=== PATIENT | female | born 1970 | race Caucasian/White ===

== ENCOUNTER 2019-07-22 22:30 | Emergency (ER) | payer BC, SELFPAY ==
--- NOTE | ~2019-07-22 | CT_ITS ---
EXAMINATION: CTA chest PE protocol DATE: 07/22/2019 23:21 INDICATION: Dyspnea, pleuritic chest pain TECHNIQUE: Computed tomography angiography (CTA) of the chest was performed with 100 mL Omnipaque-350 intravenous contrast timed to evaluate the pulmonary arteries. Coronal maximum intensity projection 3D-reconstructions were created by the technologist. Automated exposure control and iterative reconst ruction technique were employed. Exam dose: 790.10 mGy-cm total exam DLP. COMPARISON: None. FINDINGS: Examination is diagnostic for bilateral pulmonary emboli, including saddle embolus on the l eft, with emboli in the left main pulmonary artery extending into the lobar and segmental branches an d lobar, segmental and subsegmental pulmonary emboli on the right. No thoracic aortic aneurysm or dissection. Normal heart size. No pericardial or pleural effusion. No hilar or mediastinal mass lesion or lymphad enopathy. There is focal lateral consolidation in the lower lingula which may be due to infarct. Status post cholecystectomy. IMPRESSION: Extensive bilateral pulmonary embolism, possible lingular subsegmental infarct Reviewed, dictated and finalized at [facility]. Reviewed, dictated and finalized at location [facility]. IMPRESSION: Extensive bilateral pulmonary embolism, possible lingular subsegme ntal infarct
[2019-07-22 22:33] VITALS: BP 181/115; PULSE 140; RESP 30; TEMP 37.1; O2SAT 99
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
--- NOTE | 2019-07-22 22:37 | ECG_ITS ---
Measurements Intervals [place] Rate: 133 P: 40 DC: 131 QRS: -3 QRSD: 86 T: 43 QT: 301 QTc: 449 Interpretive Statements SINUS TACHYCARDIA DELAYED PRECORDIAL R/S TRANSITION BASELINE ARTIFACT- I, II, III, AVR, AVL, AVF, V1 ABNORMAL ECG Electronically Signed On 07-23-2019 8:08:02 CDT by Nick Escobar D.O.
[2019-07-22 22:45] LABS: Basophils Percent Auto 0.1 % (0.2-1.2); Eosinophils Absolute Auto 0.1 K/mm3 (0-0.3); Hematocrit 39.3 % (37.0-47.0); Hemoglobin 13.2 g/dL (12.0-15.0); Immature Granulocyte Absolute 0.03 K/mm3 (0.00-0.031); Immature Granulocyte Percent A 0.2 % (0-0.5); Lymphocytes Absolute Auto 5.64 K/mm3 (0.9-3.2); Lymphocytes Percent Auto 41.9 % (18.3-44.2); Mean Corpuscular HGB Conc 33.6 g/dl (32-36); Mean Corpuscular Hemoglobin 30.3 pg (26-34); Mean Corpuscular Volume 90.1 fl (80-100); Mean Platelet Volume 9.8 fl (7.4-10.4); Monocytes Absolute Auto 1.2 K/mm3 (0.1-0.6); Neutrophils Absolute Auto 6.4 K/mm3 (1.3-6.7); Neutrophils Percent Auto 47.8 % (45.5-73.1); Platelet Count Result 244 k/mm3 (150-375); Red Blood Count 4.36 M/mm3 (4.2-5.4); Red Cell Distribution Width 11.9 % (11.5-14.5); White Blood Count 13.5 K/mm3 (4.5-10.0)
[2019-07-22] MEDS: ASPIRIN 81 MG CHEWABLE TABLET 324 MG PO (22:50)
[2019-07-22] MEDS: SODIUM CHLORIDE 0.9% IV 1,000 ML 999 ML IV CONT (22:50)
[2019-07-22 22:55] LABS: Prothrombin Time 12.8 Seconds (11.1-14.7)
[2019-07-22 22:56] LABS: Blood Urea Nitrogen 11 mg/dL (7-17); Carbon Dioxide 24 mmol/L (22-30); Chloride 104 mmol/L (98-107); Estimated CRCL calculation 116 ml/min; Estimated Glomerular Filt Rate > 60; Glucose 107 mg/dL (65-105); Partial Thromboplastin Time 26.9 SECONDS (22.3-36.8); Potassium 4.1 mmol/L (3.4-5.0); Sodium 136 mmol/L (137-145)
[2019-07-22] MEDS: MORPHINE SULFATE 4 MG/ML INJ IV PUSH (22:56)
[2019-07-22] MEDS: ONDANSETRON INJ 4 MG/2 ML VIAL IV PUSH (22:57)
[2019-07-22 23:00] VITALS: BP 139/95; PULSE 128; RESP 22; O2SAT 97
--- NOTE | 2019-07-22 23:05 | PC.NURSE ---
called lab to add on orders at this time
[2019-07-22 23:08] LABS: Troponin I < 0.012 ng/mL (0.000-0.034)
[2019-07-22 23:31] LABS: D Dimer 6.02 ug/mL (<0.48)
[2019-07-22 23:32] LABS: Add Urine Microscopic? YES; Appearance Urine Cloudy (Clear); Bacteria Urine Trace /hpf; Bilirubin Urine Negative (Negative); Blood Urine 2+ (Negative); Color Urine Yellow (Yellow); Glucose Urine UA Negative (Negative); Ketones Urine Trace mg/dL (Negative); Leukocyte Esterase Ur 2+ LEU/UL (Negative); Mucus Urine Rare /lpf; Nitrate Urine Negative (Negative); Protein Urine 1+ mg/dL (Negative); Specific Grav Ur 1.041 (1.001-1.035); Squamous Epithelial Cell Urine Many /hpf (Few)
[2019-07-22 23:41] LABS: Alanine Aminotransferase 32 U/L (4-35); Albumin Level 3.9 g/dL (3.5-5.1); Alkaline Phosphatase 82 U/L (38-126); Aspartate Amino Transferase 38 U/L (14-36); Bilirubin,Total 0.2 mg/dL (0.2-1.3); Blood Urea Nitrogen 11 mg/dL (7-17); Calcium 8.9 mg/dL (8.4-10.2); Carbon Dioxide 23 mmol/L (22-30); Chloride 104 mmol/L (98-107); Estimated CRCL calculation 116 ml/min; Estimated Glomerular Filt Rate > 60; Glucose 106 mg/dL (65-105); NT Pro B Type Natriuretic Pept 231 PG/ML (5-100); Sodium 137 mmol/L (137-145)
[2019-07-22 23:44] LABS: Alveolar/Arterial O2 Gradient 39.8 mmHg; Carboxyhemoglobin 0.2 % THb (0-2.0); Fractional Inspired Oxygen 21 %; HCO3 ABG 19.1 mEq/l (22.0-26.0); Methemoglobin ABG 0.2 %THb (0-1.5); Oxygen Content ABG 16.7 %vol (16.0-22.0); Oxygen Saturation ABG 95.6 % (95.0-100.0); Oxyhemoglobin 93.9 % THb (90.0-100.0); PCO2 ABG 29.5 mmHg (35.0-45.0); PO2 ABG 74.6 mmHg (80.0-100.0); PO2 FiO2 Ratio Arterial Blood 3.55 %; Reduced Hemoglobin 5.7 %THb (0-5.0); Total Hemoglobin 12.6 g/dL (12.0-18.0)
[2019-07-22 23:45] LABS: Device ROOM AIR; Modified Allen's Test Pass; Site Drawn RIGHT RADIAL
[2019-07-22 23:57] VITALS: BP 125/69; PULSE 112; RESP 17; O2SAT 97
[2019-07-23 00:01] LABS: Thyroid Stimulating Hormone < 0.015 uIU/mL (0.465-4.680)
[2019-07-23] MEDS: HEPARIN SOD/D5W 100 UNITS/ML 25,000 UNITS/250 ML BAG 13 UNITS IV CONT (00:29)
[2019-07-23] MEDS: HEPARIN SODIUM 5,000 UNITS/ML VIAL 6000 UNITS IV PUSH (00:30)
[2019-07-23 00:33] VITALS: BP 162/92; PULSE 122; RESP 18; O2SAT 99
--- NOTE | 2019-07-23 00:55 | PC.NURSE ---
Juan mccrary [place] called for triage questions.
--- NOTE | 2019-07-23 01:10 | PC.NURSE ---
Juan from [place] [facility] called back to give bed number and phone number for report. Bed [id number] Number [phone] Report given to Rebecca.
[2019-07-23 02:23] VITALS: BP 111/91; PULSE 123; RESP 18; O2SAT 97
[2019-07-23 02:59] LABS: Troponin I < 0.012 ng/mL (0.000-0.034)
== END 2019-07-23 02:26 | disposition short-term general hospital (02) ==
PROVIDERS: Emergency Provider Emergency Medicine; PCP Family Medicine Adolescent Medicine
DX: I26.99 Other pulmonary embolism without acute cor pulmonale (principal); R00.0 Tachycardia, unspecified; R94.31 Abnormal electrocardiogram [ECG] [EKG]
CPT/HCPCS: 36415; 36600; 71275; 80048; 80053; 81001; 81025; 82375; 82805; 83050; 83880; 84443; 84484; 85025; 85380; 85610; 85730; 87086; 87088; 93005; 96361; 96365; 96366; 96367; 96375; 99291; A9270; J0131; J1644; J2270; J2405; J7030; Q9967

== ENCOUNTER 2019-09-03 09:48 | Emergency (ER) | payer BC, SELFPAY ==
[2019-09-03 10:04] VITALS: BP 138/90; PULSE 112; RESP 18; TEMP 37.3; O2SAT 98
--- NOTE | 2019-09-03 10:11 | ED.UPPEXIN ---
HPI - Extremity Injury (Upper) General Chief Complaint: Extremity Injury, Upper Stated Complaint: left arm pain Time Seen by Provider: 09/03/19 10:11 Source: patient and RN notes reviewed History of Present Illness HPI narrative: Patient is a 49-year-old who presents the urgent care with complaints of bilateral shoulder spasms. Patient states that she has had a lot of recent medical history starting on July 22 with chest pain and being diagnosed with a PE and a DVT. Patient was admitted to [facility] at that time. Patient was also diagnosed with hypothyroidism and was placed on medication in which she believes she was allergic to. Therefore last week patient was on a 5-day steroid taper and finished last dose as of yesterday. Patient states that she believes her muscle spasms are related to pressure washing last week. States that it started on and has been progressively worse since stopping the steroid yesterday. Patient has been taking Tylenol as needed for pain and states that it does normally help her. Patient presented very anxious and tearful and seemed to calm down after speaking with her. Patient denies of any recent fall, trauma, injury. States that the right arm is much better than the left. Patient states that she is tired and increased work around the house and was recently getting ready for a dinner constitution party this evening. Patient states several times that she does not wish to go back to the ER but will if she has to . No other acute complaints. No acute distress noted. Patient read the plan of care. Related Data Home Medications Medication Instructions Recorded Confirmed L norgest/e.estradiol-e.estrad 03/20/19 [Ashlyna] apixaban [Eliquis] mg 09/03/19 montelukast mg 09/03/19 Allergies Allergy/AdvReac Type Severity Reaction Status Date / Time amoxicillin Allergy Unknown Hives Verified 07/22/19 23:12 ibuprofen Allergy Unknown Hives Verified 07/22/19 22:39 penicillin G Allergy Unknown Hives Verified 07/22/19 22:39 Sulfa (Sulfonamide Allergy Unknown Hives Verified 07/22/19 23:12 Antibiotics) sulfanilamide Allergy Unknown Hives Verified 07/22/19 22:39 Review of Systems Review of Systems: Narrative: CONSTITUTIONAL: Denies fever, chills, or sweats. EYES: Denies visual changes, redness, or discharge. ENT: Denies rhinorrhea, congestion, sore throat, or otalgia. CARDIOVASCULAR: Denies chest pain, palpitations, or edema. RESPIRATORY: Denies cough or dyspnea. GASTROINTESTINAL: Denies abdominal pain, nausea, vomiting, or diarrhea. GENITOURINARY: Denies dysuria or hematuria. SKIN: Denies rash or itching. MUSCULOSKELETAL:reports of upper back and bilateral shoulder pains/muscle spasms NEUROLOGIC: Denies headache, numbness, or weakness. All other systems reviewed are negative, except as documented in HPI. [facility] Past Medical History Medical History (Updated 09/03/19 @ 10:32 by FADUMO Daugherty) Anxiety Tonsillitis Surgical History Surgical History (Updated 07/23/19 @ 00:12 by Patricia Barrios MD) H/O dilation and curettage H/O foot surgery History of sleeve gastrectomy Hx of tonsillectomy Social History Social History Smoking status: Never smoker Alcohol intake: never Comments At the time of my signature, I reviewed and agree with the nursing past medical, surgical, social, and family history. There is no relevant family history pertinent to the patient complaint. Exam Narrative: Exam Narrative: GENERAL: This is a well-nourished, well-developed patient, very anxious HEAD: normocephalic, atraumatic. EYES: PERRL. Sclera clear/white. Vision is grossly intact. EARS: External ears normal NOSE: External nose normal with no obvious nasal discharge, nares without redness, no rhinorrhea. THROAT: Mucous membranes moist NECK: Neck supple CARDIOVASCULAR: Regular rate and rhythm without murmurs, gallops, or rubs. RESPIRATORY: Clear to a
== END 2019-09-03 10:40 | disposition home or self-care (01) ==
PROVIDERS: Emergency Provider Nurse Practitioner Family; PCP Family Medicine Adolescent Medicine
DX: M62.838 Other muscle spasm (principal); Z86.711 Personal history of pulmonary embolism
CPT/HCPCS: 99213; G0463

== ENCOUNTER 2019-09-03 18:40 | Emergency (ER) | payer BC, SELFPAY ==
--- NOTE | ~2019-09-03 | XR_ITS ---
EXAMINATION: XR chest 1V portable DATE: 09/03/2019 19:34 INDICATION: Muscular spasm. Right arm, hand and neck swelling. TECHNIQUE: frontal view of the chest was obtained. COMPARISON: Chest radiograph dated 02/09/[address] dated 07/22/2019 FINDINGS: The lungs are clear with no focal airspace opacities, pulmonary edema, pleural effusion or pneumothor ax. The cardiomediastinal silhouette is normal. Mild to moderate thoracic spondylosis. IMPRESSION: 1. No acute cardiopulmonary disease. Reviewed, dictated and finalized at location [facility].
[2019-09-03 18:46] VITALS: BP 139/101; PULSE 126; RESP 27; TEMP 37.3; O2SAT 98
--- NOTE | 2019-09-03 19:18 | ED.GENADULT ---
HPI - General Adult General Chief complaint: Extremity Problem,Nontraumatic Stated complaint: swelling to hands, muscle spasms Time Seen by Provider: 09/03/19 18:56 Source: patient History of Present Illness HPI narrative: Patient is 49 years old white female, obese. Presents with intermittent spasm of the left biceps started 2 days ago. Today started having pain in the back of her neck, arms and groin area bilaterally. Patient also complaining of hand swelling bilaterally with pain. Patient finished a course of prednisone yesterday 60 mg once a day for the last 6 days. Patient started prednisone because of generalized hives which could be secondary to a new anti-thyroid medication started 1 week earlier. The antithyroid medication was stopped 1 week ago. Because of hives, tremors, and restlessness. Patient reports having quite a bit of work at home including power wash use at home prior to the muscle spasm. Patient went to urgent care this morning and started on Flexeril with improvement but now complaining of neck pain, groin pain and hand pain. Patient denies any fever, chills, nausea, vomiting, chest pain, shortness of breath, abdominal pain. Related Data Home Medications Medication Instructions Recorded Confirmed apixaban [Eliquis] mg 09/03/19 montelukast mg 09/03/19 Allergies Allergy/AdvReac Type Severity Reaction Status Date / Time amoxicillin Allergy Unknown Hives Verified 09/03/19 18:54 ibuprofen Allergy Unknown Hives Verified 09/03/19 18:54 penicillin G Allergy Unknown Hives Verified 09/03/19 18:54 Sulfa (Sulfonamide Allergy Unknown Hives Verified 09/03/19 18:54 Antibiotics) sulfanilamide Allergy Unknown Hives Verified 09/03/19 18:54 Review of Systems Review of Systems: Narrative: CONSTITUTIONAL: Denies fever, chills, or sweats. EYES: Denies visual changes, redness, or discharge. ENT: Denies rhinorrhea, congestion, sore throat, or otalgia. CARDIOVASCULAR: Denies chest pain, palpitations, or edema. RESPIRATORY: Denies cough or dyspnea. GASTROINTESTINAL: Denies abdominal pain, nausea, vomiting, or diarrhea. GENITOURINARY: Denies dysuria or hematuria. SKIN: Denies rash or itching. MUSCULOSKELETAL: Denies back pain, joint pain, or myalgia. NEUROLOGIC: Denies headache, numbness, or weakness. PSYCHIATRIC: Denies anxiety or depression. PMFSH Past Medical History Medical History Anxiety Tonsillitis Surgical History Surgical History H/O dilation and curettage H/O foot surgery History of sleeve gastrectomy Hx of tonsillectomy Social History Social History Smoking status: Never smoker Alcohol intake: never Gender identity (if verbalized by the patient): Female Sexual Orientation (if Verbalized by the Patient): Straight or Heterosexual Exam Narrative: Exam Narrative: General appearance: Well-developed, well-nourished Skin: Normal color Head: Normocephalic, nontraumatic Eyes: Clear conjunctiva ENT: Oropharynx normal, ears normal, nose normal Neck: Supple, nontender Chest and respiratory: Airway patent, no respiratory distress, no accessory muscle use Heart: Regular rate/rhythm Abdomen: Soft, nontender, no organomegaly, quiet bowel sounds Vascular: Normal peripheral pulses, normal capillary refill. Musculoskeletal: Diffuse tenderness of the hands bilaterally mainly on the right side, slight limited range of motion of the wrist bilaterally mainly on the right side Neurologic: Alert and oriented ?3, CANE BURNER is normal as tested, no gross motor deficit Course Course E
[2019-09-03 19:33] LABS: Basophils Percent Auto 0.2 % (0.2-1.2); Eosinophils Absolute Auto 0.1 K/mm3 (0-0.3); Eosinophils Percent Auto 0.7 % (0-4.4); Hematocrit 40.6 % (37.0-47.0); Hemoglobin 13.3 g/dL (12.0-15.0); Immature Granulocyte Absolute 0.03 K/mm3 (0.00-0.031); Immature Granulocyte Percent A 0.2 % (0-0.5); Lymphocytes Absolute Auto 5.38 K/mm3 (0.9-3.2); Lymphocytes Percent Auto 44.2 % (18.3-44.2); Mean Corpuscular HGB Conc 32.8 g/dl (32-36); Mean Corpuscular Hemoglobin 29.4 pg (26-34); Mean Corpuscular Volume 89.8 fl (80-100); Mean Platelet Volume 10.1 fl (7.4-10.4); Monocytes Absolute Auto 0.8 K/mm3 (0.1-0.6); Monocytes Percent Auto 6.7 % (2.6-8.5); Neutrophils Absolute Auto 5.8 K/mm3 (1.3-6.7); Platelet Count Result 390 k/mm3 (150-375); Red Blood Count 4.52 M/mm3 (4.2-5.4); Red Cell Distribution Width 12.8 % (11.5-14.5); White Blood Count 12.2 K/mm3 (4.5-10.0)
[2019-09-03 19:47] LABS: Alanine Aminotransferase 19 U/L (4-35); Albumin Level 4.1 g/dL (3.5-5.1); Alkaline Phosphatase 103 U/L (38-126); Aspartate Amino Transferase 21 U/L (14-36); Bilirubin,Total 0.2 mg/dL (0.2-1.3); Blood Urea Nitrogen 12 mg/dL (7-17); CRP 6.2 mg/dL (<1.0); Calcium 9.2 mg/dL (8.4-10.2); Carbon Dioxide 27 mmol/L (22-30); Chloride 101 mmol/L (98-107); Creatine Kinase 44 U/L (30-135); Estimated CRCL calculation 90 ml/min; Estimated Glomerular Filt Rate > 60; Glucose 107 mg/dL (65-105); Potassium 4.3 mmol/L (3.4-5.0); Sodium 135 mmol/L (137-145)
[2019-09-03 19:58] LABS: Erythrocyte Sedimentation Rate 34 mm/hr (0-20)
[2019-09-03] MEDS: MORPHINE SULFATE 4 MG/ML INJ (20:02)
[2019-09-03] MEDS: ONDANSETRON INJ 4 MG/2 ML VIAL IV PUSH (20:03)
[2019-09-03 20:05] VITALS: BP 133/70; PULSE 113; RESP 19; O2SAT 98
[2019-09-03 20:15] LABS: Thyroid Stimulating Hormone < 0.015 uIU/mL (0.465-4.680)
[2019-09-03 21:01] VITALS: BP 142/60; PULSE 110; RESP 19; O2SAT 99
[2019-09-03 22:00] LABS: Add Urine Microscopic? YES; Appearance Urine Clear (Clear); Bacteria Urine Trace /hpf; Bilirubin Urine Negative (Negative); Blood Urine 2+ (Negative); Color Urine Yellow (Yellow); Glucose Urine UA Negative (Negative); Ketones Urine Negative (Negative); Leukocyte Esterase Ur Trace LEU/UL (Negative); Mucus Urine Rare /lpf; Nitrate Urine Negative (Negative); Protein Urine Negative (Negative); RBC Urine 21-50 /hpf (0-2); Specific Grav Ur 1.024 (1.001-1.035); Squamous Epithelial Cell Urine Rare /hpf (Few)
[2019-09-03 22:11] VITALS: PULSE 125
[2019-09-03] MEDS: propylthiouraciL 50 MG TABLET 100 MG PO (22:11)
[2019-09-03] MEDS: PROPRANOLOL HCL 60 MG CAPSULE CR PO (22:11)
[2019-09-03 22:12] VITALS: BP 137/61; PULSE 114; RESP 19; TEMP 36.3; O2SAT 100
== END 2019-09-03 22:13 | disposition home or self-care (01) ==
PROVIDERS: Emergency Provider Emergency Medicine; PCP Family Medicine Adolescent Medicine
DX: M62.838 Other muscle spasm (principal); E66.9 Obesity, unspecified; Z68.42 Body mass index [BMI] 45.0-49.9, adult; Z79.01 Long term (current) use of anticoagulants; Z98.84 Bariatric surgery status; E05.90 Thyrotoxicosis, unspecified without thyrotoxic crisis or storm; R00.0 Tachycardia, unspecified
CPT/HCPCS: 36415; 71045; 80053; 81001; 81025; 82550; 84443; 85025; 85652; 86140; 86850; 86900; 86901; 96374; 96375; 99284; A9270; J2270; J2405

== ENCOUNTER 2019-11-03 12:34 | Outpatient (CLI) | payer BC, SELFPAY ==
--- NOTE | ~2019-11-03 | CT_ITS ---
EXAMINATION: CTA chest PE protocol EXAM DATE: 11/03/2019 13:12 INDICATION: Dyspnea. Chest pain. History pulmonary embolism. TECHNIQUE: Spiral CTA of the chest (pulmonary arteries) was performed with 100 cc Omnipaque 350 intr avenous contrast injection. Images were acquired during the pulmonary arterial phase. Coronal maxi mum intensity projection 3D-reconstructions were created by the technologist on dedicated workstation . Axial, coronal and sagittal reformatted images were reviewed. The dose-length product (DLP) for t his examination was 806.94 mGy-cm. The exposure was tailored according to patient size (auto mA exp osure control), and iterative reconstruction (ASIR) was used as additional dose reduction technique. Comparison is made to prior examination from 07/22/2019. FINDINGS: Resolution of previously seen bilateral pulmonary emboli. No thoracic aortic dissection. The lungs are clear. There are no pleural or pericardial effusions. Tracheobronchial tree is pat ent. There is no mediastinal, hilar or axillary lymphadenopathy. There is no pneumothorax. Hear t normal in size. No evidence of coronary arterial calcification. There are cholecystectomy clips. Probable gastric sleeve procedure. There is thoracic spondylosis without osteoblastic or osteolytic lesions identified. IMPRESSION: 1. Normal CTA coronary exam. Reviewed, dictated and finalized at location [facility].
== END 2019-11-03 12:35 | disposition home or self-care (01) ==
LOC: ANHIMG 12:36
PROVIDERS: PCP Family Medicine Adolescent Medicine; Visit Provider Family Medicine Adolescent Medicine
DX: R06.09 Other forms of dyspnea (principal); R07.89 Other chest pain
CPT/HCPCS: 71275; Q9967

== ENCOUNTER 2020-04-05 14:16 | Outpatient (CLI) | payer BC, SELFPAY ==
--- NOTE | ~2020-04-05 | MM_ITS ---
EXAMINATION: MM screening [facility] BI w jessica HISTORY: Screening mammogram TECHNIQUE: Craniocaudal and mediolateral oblique 3-D tomosynthesis images were obtained and synthetic 2-D images were generated. CAD analysis was submitted and interpreted. COMPARISON: 04/03/2019, 03/11/2018, 03/09/2017 bilateral digital screening mammogram examinations BREAST PARENCHYMAL COMPOSITION: The breasts are almost entirely fatty. FINDINGS: There is no evidence of suspicious mass, calcification, or architectural distortion to sugg est malignancy in either breast. There has been no suspicious interval change. IMPRESSION: 1. No mammographic evidence of malignancy. 2. Recommend routine screening mammography in one year. BI-RADS Category 1: Negative Reviewed, dictated and finalized at location [facility]. 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
== END 2020-04-05 14:17 | disposition home or self-care (01) ==
LOC: ANHIMG 14:17
PROVIDERS: PCP Family Medicine Adolescent Medicine; Visit Provider Obstetrics & Gynecology
DX: Z12.31 Encounter for screening mammogram for malignant neoplasm of breast (principal)
CPT/HCPCS: 77063; 77067

== ENCOUNTER 2020-06-28 13:55 | Outpatient (CLI) | payer BC, SELFPAY ==
--- NOTE | ~2020-06-28 | US_ITS ---
EXAMINATION: US thyroid DATE: 06/28/2020 14:43 INDICATION: Thyrotoxicosis without thyrotoxic crisis or storm. TECHNIQUE: Multiple ultrasound images of the thyroid were obtained. COMPARISON: None. FINDINGS: The right thyroid lobe measures 4.8 x 2.3 x 1.7 cm. The left thyroid lobe measures 4.6 x 2.0 x 1.8 c m. The thyroid demonstrates diffusely heterogeneous hypoechogenicity. No discrete nodule. Vascularit y is normal. IMPRESSION: 1. Heterogeneous thyroid, which may be seen with chronic lymphocytic (Farrukh) thyroiditis or Grave s' disease. Reviewed, dictated and finalized at location [facility]. IMPRESSION: 1. Heterogeneous thyroid, which may be seen with chronic lymphocytic (Farrukh ) thyroiditis or Graves' disease.
== END 2020-06-28 13:56 | disposition home or self-care (01) ==
LOC: ANHIMG 14:05
PROVIDERS: PCP Family Medicine Adolescent Medicine; Visit Provider Internal Medicine Endocrinology, Diabetes & Metabolism
DX: E05.90 Thyrotoxicosis, unspecified without thyrotoxic crisis or storm (principal); E04.1 Nontoxic single thyroid nodule
CPT/HCPCS: 76536

== ENCOUNTER 2021-04-15 07:49 | Outpatient (CLI) | payer BC, SELFPAY ==
--- NOTE | ~2021-04-15 | MM_ITS ---
EXAMINATION: MM screening [facility] BI w jessica HISTORY: Screening TECHNIQUE: Craniocaudal and mediolateral oblique 3-D tomosynthesis images were obtained and synthetic 2-D images were generated. CAD analysis was submitted and interpreted. COMPARISON: Comparison to multiple prior studies sequentially, with oldest reviewed study dated 10/26. BREAST PARENCHYMAL COMPOSITION: There are scattered areas of fibroglandular density. FINDINGS: There is no evidence of suspicious mass, calcification, or architectural distortion to sugg est malignancy in either breast. There has been no suspicious interval change. IMPRESSION: 1. No mammographic evidence of malignancy. 2. Recommend routine screening mammography in one year. BI-RADS Category 1: Negative Reviewed, dictated and finalized at location A. ESTRUCTIVE TESTER
== END 2021-04-15 07:50 | disposition home or self-care (01) ==
LOC: ANHIMG 07:51
PROVIDERS: PCP Family Medicine Adolescent Medicine; Visit Provider Obstetrics & Gynecology
DX: Z12.31 Encounter for screening mammogram for malignant neoplasm of breast (principal)
CPT/HCPCS: 77063; 77067

== ENCOUNTER 2021-11-28 10:37 | Emergency (ER) | payer BC, SELFPAY ==
[2021-11-28 10:50] VITALS: BP 105/60; PULSE 98; RESP 16; TEMP 37.1; O2SAT 99
--- NOTE | 2021-11-28 11:36 | ED.EXTPRO ---
HPI - Extremity Problem General Chief complaint: Extremity Problem,Nontraumatic Stated complaint: injury Time Seen by Provider: 11/28/21 11:26 Source: patient and RN notes reviewed Mode of arrival: ambulatory Limitations: no limitations History of Present Illness HPI Narrative: 51-year-old female presents concern for a pulling sensation of the back of her right lower leg. She reports she has a history of DVT that traveled to her lungs years ago. She reports that she recently had gastric bypass surgery and was hospitalized for 1 day. She reports she was on prophylactic Lovenox and recently used her last dose. She reports she just wants to be sure that she does not have a blood clot. She denies redness, warmth, swelling. She denies trouble breathing. MD Complaint: extremity pain Related Data Home Medications Medication Instructions Recorded Confirmed cyclosporine 0.05 % eye drops in a 1 drp EACH EYE Q12H 07/14/21 11/28/21 dropperette (Restasis) cholecalciferol (vitamin D3) 50 50 mcg PO DAILY 10/27/21 11/28/21 mcg (2,000 unit) tablet enoxaparin 60 mg/0.6 mL 60 mg subcut DAILY 11/28/21 11/28/21 subcutaneous syringe ondansetron 4 mg disintegrating 4 mg PO DAILY 11/28/21 11/28/21 tablet Allergies Allergy/AdvReac Type Severity Reaction Status Date / Time methimazole Allergy Severe Hives Verified 11/28/21 11:16 amoxicillin Allergy Unknown Hives Verified 11/28/21 11:16 ibuprofen Allergy Unknown Hives Verified 11/28/21 11:16 penicillin G Allergy Unknown Hives Verified 11/28/21 11:16 Sulfa (Sulfonamide Allergy Unknown Hives Verified 11/28/21 11:16 Antibiotics) sulfanilamide Allergy Unknown Hives Verified 11/28/21 11:16 Review of Systems Review of Systems: CONSTITUTIONAL: Denies malaise, chills, sweats, or fever. CARDIOVASCULAR: Denies chest pain, palpitations, or edema. RESPIRATORY: Denies cough or dyspnea. SKIN: Denies rash or itching, bruising, redness, swelling. MUSCULOSKELETAL: Reports mild pulling sensation in the back of her right lower leg NEUROLOGIC: Denies numbness, weakness All systems reviewed & are unremarkable except as noted in HPI and below PMFSH Past Medical History Medical History Anxiety Hepatitis History of DVT (deep vein thrombosis) femoral vein LLE 07/2019 History of paroxysmal supraventricular tachycardia History of pulmonary embolus (PE) 07/2019 Normal endoscopic retrograde cholangiopancreatography (ERCP) Obesity Tonsillitis Surgical History Surgical History H/O dilation and curettage H/O foot surgery History of cholecystectomy History of sleeve gastrectomy History of sleeve gastrectomy Hx of tonsillectomy Family History Family History (Updated 07/14/21 @ 12:56 by Vaishali Birmingham MA) Mother Heart disease Diabetes mellitus Hypertension Arthritis Father Hypertension Grandparent Breast cancer Heart disease Social History Social History Smoking status: Never smoker Second hand tobacco smoke exposure: No Alcohol intake: never Substance use: never Substance use type: does not use Gender identity (if verbalized by the patient): Female Sexual Orientation (if Verbalized by the Patient): Straight or Heterosexual Spiritual care concerns: No Agree to blood products: Yes Comments At time of signature, agree with nursing past medical, surgical, social and family history. There is no relevant family history pertinent to the presenting complaint Exam Narrative: GENERAL: Well-appearing, well-nourished, and in no acute distress. HEAD: Normocephalic, atraumatic. EYES: PERRLA, conjunctivae clear NECK: Supple. CHEST: Speaks in full sentences. No respiratory distress. HEART: Regular rate and rhythm. Normal and equal peripheral pulses. EXTREMITIES: Right lower leg has normal strength
== END 2021-11-28 11:40 | disposition home or self-care (01) ==
PROVIDERS: Emergency Provider Nurse Practitioner; PCP Family Medicine Adolescent Medicine
DX: M79.661 Pain in right lower leg (principal); Z86.718 Personal history of other venous thrombosis and embolism; Z86.711 Personal history of pulmonary embolism; E66.9 Obesity, unspecified; Z68.42 Body mass index [BMI] 45.0-49.9, adult; Z98.84 Bariatric surgery status
CPT/HCPCS: 99212; G0463

== ENCOUNTER 2022-05-19 07:24 | Outpatient (CLI) | payer BC, SELFPAY ==
--- NOTE | ~2022-05-19 | MM_ITS ---
EXAMINATION: MM screening [facility] [place] BI w jessica HISTORY: Screening mammogram TECHNIQUE: Craniocaudal and mediolateral oblique 3-D tomosynthesis images were obtained and synthetic 2-D images were generated. CAD analysis was submitted and interpreted. COMPARISON: 04/15/2021, 04/05/2020, 04/03/2019 BREAST PARENCHYMAL COMPOSITION: The breasts are almost entirely fatty. FINDINGS: No suspicious mass, calcification, or architectural distortion are identified in either owen ast to suggest malignancy. There has been no suspicious interval change. IMPRESSION: 1. No mammographic evidence of malignancy. 2. Recommend routine screening mammography in one year. BI-RADS Category 1: Negative Reviewed, dictated and finalized at location A. 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
== END 2022-05-19 07:25 | disposition home or self-care (01) ==
LOC: ANHIMG 07:25
PROVIDERS: PCP Family Medicine Adolescent Medicine; Visit Provider Obstetrics & Gynecology
DX: Z12.31 Encounter for screening mammogram for malignant neoplasm of breast (principal)
CPT/HCPCS: 77063; 77067

== ENCOUNTER 2022-08-22 10:40 | Emergency (ER) | payer BC, SELFPAY ==
--- NOTE | ~2022-08-22 | XR_ITS ---
XR hand RT min 3V 08/22/2022 11:10 Indication: Smashed in door one day ago. Right hand pain. Procedure: 3 views right hand Comparison: 05/16/2012 and 11/21/2012 Findings: Osteopenia. Mild polyarticular osteoarthritis. There is a side plate and screws transfixing the distal tibia. There is an old ulnar styloid avulsion fracture. No acute fracture or traumatic ma lalignment. Impression: 1: No acute fracture. Reviewed, dictated and finalized at location A. Impression: 1: No acute fracture.
--- NOTE | 2022-08-22 10:42 | ED.UPPEXIN ---
HPI - Extremity Injury (Upper) General Chief Complaint: Extremity Injury, Upper Stated Complaint: Right Hand Pain Time Seen by Provider: 08/22/22 10:42 Source: patient Mode of arrival: ambulatory Limitations: no limitations History of Present Illness HPI narrative: Amy is a 52-year-old female patient presenting to the clinic today with complaints of right hand pain x1 day. She reports she smashed her right hand in between her knee and a desk yesterday. Reports that there was a lot of swelling and and not to the top of her hand just proximal of the 2nd finger. Is still having some pain/burning today. Is concerned that her hand may be fractured. Related Data Home Medications Medication Instructions Recorded Confirmed cyclosporine 0.05 % eye drops in a 1 drp EACH EYE Q12H 07/14/21 04/16/22 dropperette (Restasis) calcium citrate 500 mg-vit D3 12.5 g PO TID 04/16/22 04/16/22 mcg (500 unit)/5 gram oral powder docusate sodium 100 mg capsule 100 mg PO BID 04/16/22 04/16/22 (Colace) mecobalamin (vitamin B12) 5,000 mcg PO 04/16/22 04/16/22 mcg disintegrating tablet multivitamin 1 tablet PO BID 04/16/22 04/16/22 Allergies Allergy/AdvReac Type Severity Reaction Status Date / Time methimazole Allergy Severe Hives Verified 08/22/22 10:49 amoxicillin Allergy Unknown Hives Verified 08/22/22 10:49 ibuprofen Allergy Unknown Hives Verified 08/22/22 10:49 penicillin G Allergy Unknown Hives Verified 08/22/22 10:49 Sulfa (Sulfonamide Allergy Unknown Hives Verified 08/22/22 10:49 Antibiotics) sulfanilamide Allergy Unknown Hives Verified 08/22/22 10:49 Review of Systems Review of Systems: Pertinent positives per HPI. Patient denies any fever, chills, rash, headache, visual changes, dizziness, cough, runny nose, sore throat, shortness of breath, chest pain, palpitations, nausea, vomiting, diarrhea, constipation, abdominal pain, or any urinary issues. PMFSH Past Medical History Medical History Anxiety Hepatitis History of DVT (deep vein thrombosis) femoral vein LLE 07/2019 History of paroxysmal supraventricular tachycardia History of pulmonary embolus (PE) 07/2019 Normal endoscopic retrograde cholangiopancreatography (ERCP) Obesity Tonsillitis Surgical History Surgical History H/O dilation and curettage H/O foot surgery History of cholecystectomy History of Augustin-en-Y gastric bypass (~11/2021) Sleeve revised to Augustin-en-Y History of sleeve gastrectomy History of sleeve gastrectomy Hx of tonsillectomy Family History Family History Mother Heart disease Diabetes mellitus Hypertension Arthritis Father Hypertension Grandparent Breast cancer Heart disease Social History Social History Smoking status: Never smoker Second hand tobacco smoke exposure: No Alcohol intake: never Substance use: never Substance use type: does not use Living arrangements: alone Occupation/Education: occupation Gender identity (if verbalized by the patient): Female Sexual Orientation (if Verbalized by the Patient): Straight or Heterosexual Spiritual care concerns: No Agree to blood products: Yes Comments At the time of my signature, I reviewed and agree with the nursing past medical, surgical, social, and family history. There is no relevant family history pertinent to the patient complaint. Exam Narrative: General: Well-developed, well nourished, in no apparent distress Head: Normocephalic, atraumatic. Cardio: Regular rate and rhythm, s1 and s2 normal, no murmur appreciated. Resp: Clear to auscultation bilaterally, no rhonchi, rales, wheezing or rubs. Musculoskeletal: No deformity, nodded bruised area palpable to the dorsal right hand just proxi
[2022-08-22 10:52] VITALS: BP 118/66; PULSE 66; RESP 16; TEMP 36.9; O2SAT 99
== END 2022-08-22 11:32 | disposition home or self-care (01) ==
PROVIDERS: Emergency Provider Nurse Practitioner Family; PCP Family Medicine Adolescent Medicine
DX: S60.221A Contusion of right hand, initial encounter (principal); X58.XXXA Exposure to other specified factors, initial encounter; E66.9 Obesity, unspecified; Z68.38 Body mass index [BMI] 38.0-38.9, adult
CPT/HCPCS: 73130; 99213; G0463

== ENCOUNTER 2023-07-30 07:54 | Outpatient (CLI) | payer BC, SELFPAY ==
--- NOTE | ~2023-07-30 | MM_ITS ---
EXAMINATION: MM screening ziyad BI w jessica HISTORY: Screening mammogram TECHNIQUE: Craniocaudal and mediolateral oblique 3-D tomosynthesis images were obtained and synthetic 2-D images were generated. CAD analysis was submitted and interpreted. COMPARISON: 05/19/2022, 04/15/2021 bilateral screening mammogram examinations BREAST PARENCHYMAL COMPOSITION: The breasts are almost entirely fatty. FINDINGS: There is no evidence of suspicious mass, calcification, or architectural distortion to sugg est malignancy in either breast. There has been no suspicious interval change. IMPRESSION: 1. No mammographic evidence of malignancy. 2. Recommend routine screening mammography in one year. BI-RADS Category 1: Negative Reviewed, dictated and finalized at location B.
== END 2023-07-30 07:55 | disposition home or self-care (01) ==
PROVIDERS: PCP Family Medicine Adolescent Medicine; Visit Provider Obstetrics & Gynecology
DX: Z12.31 Encounter for screening mammogram for malignant neoplasm of breast (principal)
CPT/HCPCS: 77063; 77067

== ENCOUNTER → 2024-07-17 12:56 | Outpatient (CLI) | payer BC, SELFPAY ==
--- NOTE | ~2024-07-17 | XR_ITS ---
[id number] Ordering provider: Alexandria Valladares APRN History: . M25.562 - Pain in left knee . Comparison: None. FINDINGS: BONES: Small opacity is seen projected over the joint space in the AP view which may be a loose body. Otherwise, No acute fracture or dislocation. JOINT SPACES: Normal. SOFT TISSUES: Normal. IMPRESSION: No acute osseous abnormality left knee. Possible loose body in the joint space. Noncontrast CT is better for evaluation Reviewed, dictated and finalized at location A.
== END ==
PROVIDERS: PCP Nurse Practitioner Family; Visit Provider Nurse Practitioner Family
DX: M25.562 Pain in left knee (principal)
CPT/HCPCS: 73560

== ENCOUNTER 2024-07-21 13:17 | Outpatient (CLI) | payer BC, SELFPAY ==
--- NOTE | ~2024-07-21 | CT_ITS ---
Procedure: CT knee LT wo con Ordering provider: Alexandria Valladares APRN History: . Loose body in knee, left knee . Comparison: None. Technique: Thin slice axial CT of the No IV contrast was given. Sagittal and coronal reformatted imag es were also obtained and reviewed. Radiation reduction technique utilized.The dose-length product wa s 605.33 mGy-cm. Findings: BONES: No fractures seen. Mild osteopenia of the bones. Tiny bony fragment seen in the posterior aspe ct of the knee in the area adjacent to the tibial spine which may be a loose body or ossification in the ligaments. JOINT SPACES: Moderate narrowing of the medial compartment on the left knee is seen. Marginal osteoph ytes seen in the knee and patella. SOFT TISSUES: Normal. IMPRESSION: Tiny bony fragment or calcification in the joint space area which may be a loose body or ossification in the soft tissues. Follow-up advised. Mild to moderate osteoarthritic changes. Reviewed, dictated and finalized at location A. IMPRESSION: Tiny bony fragment or calcification in the joint space area which may be a loos e body or ossification in the soft tissues. Follow-up advised. Mild to moderate osteoarthritic changes.
== END 2024-07-21 13:18 | disposition home or self-care (01) ==
LOC: MICIMG 13:18
PROVIDERS: PCP Nurse Practitioner Family; Visit Provider Nurse Practitioner Family
DX: M23.42 Loose body in knee, left knee (principal); M17.12 Unilateral primary osteoarthritis, left knee
CPT/HCPCS: 73700

== ENCOUNTER 2024-08-01 15:27 | Outpatient (CLI) | payer BC, SELFPAY ==
--- NOTE | ~2024-08-01 | MM_ITS ---
EXAMINATION: MM screening ziyad BI w jessica HISTORY: Screening TECHNIQUE: Craniocaudal and mediolateral oblique 3-D tomosynthesis images were obtained and synthetic 2-D images were generated. CAD analysis was submitted and interpreted. COMPARISON: Comparison to multiple prior studies sequentially, with oldest reviewed study dated 02/13. BREAST PARENCHYMAL COMPOSITION: Not dense: There are scattered areas of fibroglandular density. FINDINGS: There is no evidence of suspicious mass, calcification, or architectural distortion to sugg est malignancy in either breast. There has been no suspicious interval change. IMPRESSION: 1. No mammographic evidence of malignancy. 2. Recommend routine screening mammography in one year. BI-RADS Category 1: Negative Reviewed, dictated and finalized at location B.
--- OUTSIDE RECORDS SUMMARY | 2024-08-01 15:32 | XMS_ITS | Clinical Summary ---
Author Organization [facility] Address [address] [place] [address] Phone Care Team Providers Care Social Media Strategist Name Role Phone Felipe Chan MD Primary Care Provider [phone] Allergies Active Allergy Reactions Criticality Noted Date Comments Ibuprofen Hives High 04/11/2021 Methimazole Unknown 11/14/2021 Penicillins Hives High 04/11/2021 Propylthiouracil Unknown 11/14/2021 Sulfa (Sulfonamide Antibiotics) Hives,Rash High 03/16 Medications enoxaparin (LOVENOX) 60 mg/0.6 mL injection Inject 0.6 mL (60 mg) by subcutaneous injection for 10 days. 6 mL 2 Active metoprolol succinate (TOPROL XL) 25 mg Extended Release 24 hour tablet Take 25 mg by mouth daily. Active cycloSPORINE (Restasis MultiDose) 0.05 % Drops 1 Drop 2 times daily. Active pantoprazole (PROTONIX) 40 mg Tablet, Delayed Release (E.C.) Take 40 mg by mouth 2 times daily. Active HYDROcodone-garret taminophen (HYCET) 7.5-325 mg/15 mL SolutionIndicat ions:Gastroesop hageal reflux disease, unspecified whether esophagitis present Take 15 mL by mouth every 6 hours as needed for Pain. Max Daily Amount: 60 mL 280 mL 11/20/2021 4:39 PM CDT 2 Active ondansetron (Zofran) 4 mg Tablet Take 1 Tablet (4 mg) by mouth every 8 hours as needed for Nausea or Vomiting. 50 Tablet 2 Active Active Problems Problem Noted Date Diagnosed Date Hypertension 11/19/2021 Postoperative nausea and vomiting 11/19/2021 Postoperative pain 11/19/2021 Gastroesophageal reflux disease without esophagi tis 11/19/2021 Social History Tobacco Use Types Packs/Day Years Used Date Smoking Tobacco: Never Smokeless Tobacco: Never Tobacco Cessation:Counseling Given: Not Answered Alcohol Use Standard Drinks/Week Comments Not Currently 0 (1 standard drink = 0.6 oz pur e alcohol) Comments No Sex and Gender Information Value Date Recorded Sex Assigned at Not on file Legal Sex Female 9:56 AM LACQUER [employer]ER Gender Identity Not on file Sexual Orientation Not on file Last Filed Vital Signs Vital Sign Reading Time Taken Comments Blood Pressure 151/62 11/20/2021 3:51 PM CDT Pulse 61 11/20/2021 3:51 PM CDT Temperature 37 C (98.6 F) 11/20/2021 3:51 PM CDT Respiratory Rate 18 11/20/2021 3:51 PM CDT Oxygen Saturation 98% 11/20/2021 3:51 PM CDT Inhaled Oxygen Concentration - - Weight 133.2 kg (293 lb 9.6 oz) 11/20/2021 4:41 AM CDT Height 157.5 cm (5' 2 ) 11/19/2021 3:08 PM CDT Body Mass Index 53.7 11/19/2021 3:08 PM CDT Plan of Treatment Health Maintenance Due Date Last Done Comments DTAP/TDAP/TD VACCINES (1 - Tdap) 01/21/1991 HEPATITIS B VACCINES (1 of 3 - 19+ 3-dose series) 11/1990 HPV/Cotest (21-29) 01/21/1993 CERVICAL CANCER SCREENING 01/21/2002 HPV/Cotest (30-65) 01/21/2002 PAP SMEAR 01/21/2002 BREAST CANCER SCREENING 2012 COLORECTAL SCREENING 01/21/2017 Colorectal Cancer Screening 01/21/2017 FIT-DNA Q 3 years 01/21/2017 FIT/FOBT Q 1 year 01/21/2017 Flex Sig/CT Colonography Q 5 years 01/21/2017 ZOSTER VACCINE (1 of 2) 01/21/2022 INFLUENZA VACCINE (#1) 2023 Medical Devices Implanted Type Area Tile Layer Supervisor Device Identifier Shelf Expiration Date Model / Serial / Lot Seamguard Endogia 60 Prpl [id number] - [id number] Implanted:Qt y: 1 on 11/19/2021 by Elvia Garrison MD at [facility] Biological N/A: [employer] [id number] 06/30/2024 12BSGTRI 60P / / [id number] Seamguard Endogia 60 Prpl [id number] - [id number] Implanted:Qt y: 1 on 11/19/2021 by Elvia Garrison MD at [facility] Biological N/A: [employer] [id number] 06/30/2024 12BSGTRI 60P / / [id number] Seamguard Endogia 60 Prpl [id number] - [id number] Implanted:Qt y: 1 on 11/19/2021 by Elvia Garrison MD at [facility] Biological N/A: [employer] [id number] 06/30/2024 12BSGTRI 60P / / [id number] Seamguard Endogia 60 Prpl [id number] - [id number] Implanted:Qt y: 1 on 11/19/2021 by Elvia Garrison MD at [facility] N/A: [employer] [id number] 06/23/2024 12BSGTRI 60P / / [id number] Bone Graft/Hardwa re Rt Arm Insurance [facility] BLUE ACCESS CHOICE RX [employer] (INTERNAL) [facility] Internal Plans Advance Directives For more information, please contact: [phone] * Full Code (Latest Code Status on File) Date Activated Date Inactivated Comments 11/19/2021 12:04 PM 11/20/2021 9:19 PM * Full Code Date Activated Date Inactivated Comments 11/19/2021 7:51 AM 11/19/2021 12:04 PM * Full Code Date Activated Date Inactivated Comments 11/19/2021 6:23 AM 11/19/2021 7:51 AM Care Teams Social Media Strategist Relationship Specialty Start Date End Date Felipe Chan MD PCP - General Family Practice 04/11/21
== END 2024-08-01 15:28 | disposition home or self-care (01) ==
LOC: ANHIMG 15:30
PROVIDERS: PCP Nurse Practitioner Family; Visit Provider Obstetrics & Gynecology
DX: Z12.31 Encounter for screening mammogram for malignant neoplasm of breast (principal)
CPT/HCPCS: 77063; 77067

== ENCOUNTER 2024-08-10 13:46 | Outpatient (CLI) | payer BC, SELFPAY ==
--- NOTE | ~2024-08-10 | MR_ITS ---
MRI of the left knee Clinical history: Internal derangement Technique: Coronal proton density and proton density-weighted images, sagittal proton-density and T2 fat-sat images, and axial proton-density fat-saturated images were acquired. Findings: Anterior and posterior cruciate ligaments are intact. Medial collateral ligament and the la teral collateral ligament complex are intact. Popliteus tendon is intact. Posterior horn of the medial meniscus is somewhat diminutive, compatible complex/oblique tear. No lat eral meniscal tear seen. There is high-grade chondral malacia the patellar apex extending to the medial facet. There is mild c hondromalacia at the medial lateral joint lines. Small tricompartmental osteophytes are present. Extensor mechanism is intact. There is minimal joint effusion. No Bower's cyst. Impression: Complex/oblique tear of the posterior horn of the medial meniscus. Mild tricompartmental degenerative change overall, as detailed above. Reviewed, dictated and finalized at [facility]. Impression: Complex/oblique tear of the posterior horn of the medial meniscus. Mild tricompartmental degenerative change overall, as detailed above.
== END 2024-08-10 13:47 | disposition home or self-care (01) ==
LOC: MICIMG 13:47
PROVIDERS: PCP Nurse Practitioner Family; Visit Provider Orthopaedic Surgery
DX: S83.232A Complex tear of medial meniscus, current injury, left knee, initial encounter (principal); X58.XXXA Exposure to other specified factors, initial encounter; M23.92 Unspecified internal derangement of left knee
CPT/HCPCS: 73721

== ENCOUNTER 2024-10-25 13:51 | Emergency (ER) | payer BC, SELFPAY ==
--- NOTE | ~2024-10-25 | XR_ITS ---
Exam: X-ray abdomen/KUB one view HISTORY: Right flank pain. Comparisons: None. TECHNIQUE: 2 images of the abdomen were obtained. FINDINGS: Cholecystomy clips are present. Large amount of stool. Moderate amount of air in nondilated large bowel. Small to moderate amount of air in nondilated small bowel. There is a 7 mm possible calcification projecting in the left mid abdo men possibly a renal stone. There is a 5 mm calcified granuloma in the left lower lobe. IMPRESSION: 1. Nonspecific, nonobstructive bowel gas pattern with a large amount of stool. If symptoms persist or worsen, consider a CT of the abdomen and pelvis for further assessment. Reviewed, dictated and finalized at location A. IMPRESSION: 1. Nonspecific, nonobstructive bowel gas pattern with a large amount of stool. If symptoms persist or worsen, consider a CT of the abdomen and pelvis for furt her assessment.
[2024-10-25 13:58] VITALS: BP 140/68; PULSE 75; RESP 18; TEMP 36.4; O2SAT 98
--- NOTE | 2024-10-25 14:02 | ED_ITS ---
HPI - Back Pain/Injury General Chief Complaint: Back Pain/Injury Stated Complaint: lower back pain Time Seen by Provider: 10/25/24 14:34 Source: patient and RN notes reviewed Mode of arrival: ambulatory Limitations: no limitations History of Present Illness HPI Narrative: 54-year-old female presents with concern for right flank pain. She reports pain is been there about a week. She reports it is dull and occasionally sharp. She denies any relieving factors. Reports chart positions may make it worse. She reports she took Tylenol once. She reports history of kidney stones. She denies injury or trauma. She denies dysuria, frequency, urgency, loss of bowel or bladder function, perianal anesthesia or weakness in any extremity. MD elicited complaint: back pain Related Data Home Medications ?Medication ?Instructions ?Recorded ?Confirmed ?Last Taken ?Type cyclosporine 0.05 % eye drops in a 1 drp EACH EYE Q12H 07/14/21 10/25/24 Unknown History dropperette (Restasis) calcium 500 mg (citrate)-vit D3 g PO TID 04/16/22 10/25/24 Unknown History 12.5 mcg (500 unit)/5 gram oral powder docusate sodium 100 mg capsule 100 mg PO BID 04/16/22 10/25/24 Unknown History (Colace) mecobalamin (vitamin B12) 5,000 mcg PO 04/16/22 10/25/24 Unknown History mcg disintegrating tablet multivitamin 1 tablet PO BID 04/16/22 10/25/24 Unknown History Allergies Allergy/AdvReac Type Severity Reaction Status Date / Time methimazole Allergy Severe Hives Verified 10/25/24 13:55 amoxicillin Allergy Unknown Hives Verified 10/25/24 13:55 ibuprofen Allergy Unknown Hives Verified 10/25/24 13:55 penicillin G Allergy Unknown Hives Verified 10/25/24 13:55 Sulfa (Sulfonamide Allergy Unknown Hives Verified 10/25/24 13:55 Antibiotics) sulfanilamide Allergy Unknown Hives Verified 10/25/24 13:55 Review of Systems Review of Systems: CONSTITUTIONAL: Denies malaise, chills, sweats, or fever. CARDIOVASCULAR: Denies chest pain, palpitations, or edema. RESPIRATORY: Denies cough or dyspnea. GASTROINTESTINAL: Denies abdominal pain, nausea, vomiting, diarrhea, loss of bowel function GENITOURINARY: Denies dysuria, hematuria, frequency, loss of bladder function. SKIN: Denies rash or itching. MUSCULOSKELETAL: Reports right flank pain NEUROLOGIC: Denies numbness, weakness, or headache. All systems reviewed & are unremarkable except as noted in HPI and below PMFSH Past Medical History Medical History (Reviewed 10/25/24 @ 10:37 by Alessandra Billingsley [facility]) Morbid obesity with BMI of 40.0-44.9, adult History of paroxysmal supraventricular tachycardia History of DVT (deep vein thrombosis) femoral vein LLE 07/2019 History of pulmonary embolus (PE) 07/2019 BMI 50.0-59.9, adult Normal endoscopic retrograde cholangiopancreatography (ERCP) Hepatitis Obesity Anxiety Tonsillitis Surgical History Surgical History (Reviewed 10/25/24 @ 10:37 by Alessandra Billingsley [facility]) History of Augustin-en-Y gastric bypass (~11/2021) Sleeve revised to Augustin-en-Y History of sleeve gastrectomy History of cholecystectomy H/O foot surgery H/O dilation and curettage Hx of tonsillectomy Family History Family History Mother Heart disease Diabetes mellitus Hypertension Arthritis Father Hypertension Grandparent Breast cancer Heart disease Social History Social History (Reviewed 10/25/24 @ 10:37 by Alessandra Billingsley [facility]) Smoking status: Never smoker Second hand tobacco smoke exposure: No Alcohol intake: never Substance use: never Substance use type: does not use Do You Feel Safe in your Home?: Yes Lack of Transportation: No Lack of Food: Never True Current Housing: I Have Housing Concerned About Future Housing: No Difficulty Paying Gas/Electric Bills: No Difficulty Paying for Meds: No Currently Unemployed: No Education: Master's Degree or Higher Difficulty w/ Childcare or Family Care: No Living arrangements: alone Occupation/Education: occupation Gender identity (if verbalized by the patient): Female Sexual Orientation (if Verbalized by the Patient): Straight or Heterosexual Spiritual care concerns: No Agree to blood products: Yes Comments At time of signature, agree with nursing past medical, surgical, social and family history. There is no relevant family history pertinent to the presenting complaint Exam Narrative: GENERAL: Well-appearing, well-nourished, and in no acute distress. HEAD: Normocephalic, atraumatic. EYES: PERRLA and EOMI. NECK: Supple. No lymphadenopathy. CHEST: Clear to auscultation. No respiratory distress. HEART: Regular rate and rhythm. Distal pulses palpable and equal, cap refill <3 seconds ABDOMEN: Soft, nontender, nondistended, no palpable or pulsatile masses. Right CVA tenderness MUSCULOSKELETAL: Normal range of motion and strength in all extremities; 5/5 strength with hip flexion and extension, dorsiflexion and extension, knee flexion and extension, plantar flexion and extension. Normal sensation in dermatomal distributions with sensitivity to light touch and pain. No midline back tenderness to palpation. No paraspinal tenderness. Transfers from lying to sitting to standing. SKIN: Warm, dry, no rash. No ecchymosis, erythema, open wounds to back. NEURO: No focal deficits. Alert and oriented x3. Normal gait. PSYCH: Normal mood and affect Course Course Emergency Course: Patient is aware of diagnosis, understands and agrees to treatment plan. Anticipatory guidance given. Patient agrees to follow-up as directed and is aware of reasons to seek care at the emergency department. Portions of this record may have been created with voice recognition software Level of Care: Express Care Visit Vital Signs Vital signs: Vital Signs Temperature 97.6 F 10/25/24 13:58 Pulse Rate 75 10/25/24 13:58 Respiratory Rate 18 10/25/24 13:58 Blood Pressure 140/68 10/25/24 13:58 Pulse Oximetry 98 10/25/24 13:58 Oxygen Delivery Room Air 10/25/24 13:58 Temperature 97.6 F 10/25/24 13:58 Pulse Rate 75 10/25/24 13:58 Respiratory Rate 18 10/25/24 13:58 Blood Pressure 140/68 10/25/24 13:58 Pulse Oximetry 98 10/25/24 13:58 Oxygen Delivery Room Air 10/25/24 13:58 Reviewed. MDM - Back Pain/Injury MDM Narrative Medical decision making narrative: I evaluated this in the express care. History is obtained from patient who is an independent historian and physical exam was performed.? Available medical recor ds were reviewed. ? Exam findings and relevant testing show no acute concerns or changes; patient is non-toxic appearing and is in no distress. No risk factors or findings concerning for epidural abscess, diskitis, vertebral osteomyelitis, cord compression, cauda equina, vertebral fracture or bone malignancy, AAA, or pyelonephritis. Patient instructed to consider further imaging and workup through their primary care physician as an outpatient if symptoms persist. ? Differential diagnosis and treatment plan were discussed with the patient. Patient agrees with discussion and after shared medical decision making agrees with plan of care. All questions were answered to the patient's satisfaction. Patient is appropriate for outpatient treatment and follow-up. Imaging Data My impression: Images reviewed, interpreted by radiologist, agree, see report. Radiologist's impression: TECHNIQUE: 2 images of the abdomen were obtained. FINDINGS: Cholecystomy clips are present. Large amount of stool. Moderate amount of air in nondilated large bowel. Small to moderate amount of air in nondilated small bowel. There is a 7 mm possible calcification projecting in the left mid abdomen possibly a renal stone. There is a 5 mm calcified granuloma in the left lower lobe. IMPRESSION: 1. Nonspecific, nonobstructive bowel gas pattern with a large amount of stool. If symptoms persist or worsen, consider a CT of the abdomen and pelvis for further assessment. Critical Care Time Critical Care Time Critical Care Time: No Discharge Plan Discharge Clinical Impression: Right flank pain Patient Disposition: Home Condition: Stable Instructions: Flank Pain (ED) Additional Instructions: 1) Please follow-up with your primary care doctor in the next 1-2 days. 2) If you have any worsening of symptoms or any other urgent concerns please go to the ER. 3) Please take medications as prescribed and continue taking your home medications as usual. 4) Please read and follow information included in discharge instructions. Patient Language: Armenian Prescriptions: New tamsulosin [Flomax] 0.4 mg capsule 0.4 mg PO DAILY Qty: 5 0RF No Action cyclosporine [Restasis] 0.05 % dropperette 1 drp EACH EYE Q12H mecobalamin (vitamin B12) 5,000 mcg tablet,disintegrating PO docusate sodium [Colace] 100 mg capsule 100 mg PO BID calcium citrate-vitamin D3 500 mg-12.5 mcg /5 gram powder PO TID multivitamin Tablet 1 tablet PO BID metoprolol succinate 25 mg tablet extended release 24 hr 12.5 mg PO DAILY Qty: 45 0RF Follow-up/Referrals: Alexandria Valladares APRN [Primary Care Provider] - Time of Disposition: 14:43
[2024-10-25 14:28] LABS: EDUAAPPEAR Clear; EDUABILI Negative (Negative); EDUABLOOD 1+ (Negative); EDUACOLOR1 Yellow; EDUAGLUCOSE Negative (Negative); EDUAKETONE Negative (Negative); EDUALEUKO Negative (Negative); EDUANITRATE Negative (Negative); EDUAPH 5.5; EDUAPROTEIN Negative (Negative); EDUASPGRAVITY 1.025; EDUAUROBILI 0.2
== END 2024-10-25 14:47 | disposition home or self-care (01) ==
PROVIDERS: Emergency Provider Nurse Practitioner; PCP Nurse Practitioner Family
DX: R10.9 Unspecified abdominal pain (principal); Z87.442 Personal history of urinary calculi; I47.19 Other supraventricular tachycardia; E66.01 Morbid (severe) obesity due to excess calories; Z68.41 Body mass index [BMI] 40.0-44.9, adult; F41.9 Anxiety disorder, unspecified; Z86.718 Personal history of other venous thrombosis and embolism; Z86.711 Personal history of pulmonary embolism; Z98.84 Bariatric surgery status
CPT/HCPCS: 74018; 81003; 99213; G0463

== ENCOUNTER 2024-11-02 10:26 | Outpatient (CLI) | payer BC, SELFPAY ==
--- NOTE | 2024-11-02 10:37 | ECG_ITS ---
Test Date: 2024-11-02 10:44:06 Measurements Intervals [place] Rate: 52 P: 31 MD: 165 QRS: 0 QRSD: 89 T: 10 QT: 383 QTc: 359 Interpretive Statements SINUS BRADYCARDIA WITH SINUS ARRHYTHMIA BORDERLINE R WAVE PROGRESSION, ANTERIOR LEADS BASELINE ARTIFACT- I, II, III BORDERLINE ECG No previous ECG available for comparison Electronically Signed On 11-02-2024 10:47:37 CDT by Nick Escobar D.O.
--- OUTSIDE RECORDS SUMMARY | 2024-11-02 11:08 | XMS_ITS | Clinical Summary ---
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 Gender Identity Not on file Sexual Orientation [...] 4:41 AM CDT Height 157.5 cm (5' 2) 11/19/2021 3:08 PM CDT Body Mass Index [...] (1 of 2) 01/21/2022 INFLUENZA VACCINE (#1) 2024 Medical Devices Implanted Type Area Property Adjuster Device Identifier Shelf Expiration Date Model / Serial / Lot Seamguard Endogia 60 Prpl [id number] - [id number] Implanted:Qt y: 1 on 11/19/2021 by Elvia Garrison MD at [facility] Biological N/A: [employer] [id number] 06/30/2024 12BSGTRI 60P / / [id number] Seamguard Endogia 60 Prpl [id number] - [id number] Implanted:Qt y: 1 on 11/19/2021 by Elvia Garrison MD at [facility] Biological N/A: [employer] [id number] 06/30/2024 12BSGTRI 60P / / [id number] Seamguard Endogia 60 Prpl [id number] - [id number] Implanted:Qt y: 1 on 11/19/2021 by Elvia Garrison MD at [facility] Biological N/A: [employer] [id number] 06/30/2024 12BSGTRI 60P / / [id number] Seamguard Endogia 60 Prpl [id number] - [id number] Implanted:Qt y: 1 on 11/19/2021 by Elvia Garrison MD at [facility] N/A: [employer] [id number] 06/23/2024 12BSGTRI 60P / / [id number] Bone Graft/Hardwa re Rt Arm Insurance [facility] BLUE ACCESS CHOICE RX [employer] (INTERNAL) [facility] Internal Plans Advance Directives For more information, please contact: [phone] * Full Code (Latest Code Status on File) Date Activated Date Inactivated Comments 11/19/2021 12:04 PM 11/20/2021 9:19 PM * Full Code Date Activated Date Inactivated Comments 11/19/2021 7:51 AM 11/19/2021 12:04 PM * Full Code Date Activated Date Inactivated Comments 11/19/2021 6:23 AM 11/19/2021 7:51 AM Care Teams Automatic Splicing Machine Operator Relationship Specialty Start Date End Date Felipe Chan MD PCP - General Family Practice 04/11/21
== END 2024-11-02 10:27 | disposition home or self-care (01) ==
LOC: ANHSURGERY 10:30
PROVIDERS: PCP Nurse Practitioner Family; Visit Provider Orthopaedic Surgery
DX: R00.2 Palpitations (principal); R94.31 Abnormal electrocardiogram [ECG] [EKG]
CPT/HCPCS: 93005

== ENCOUNTER 2024-11-09 00:15 | Day surgery (SDC) | payer BC, SELFPAY ==
[2024-10-30 09:00] VITALS: BMI 41.5
--- NOTE | 2024-10-30 09:08 | PC.NURSE ---
Report to the Outpatient Waiting Room, entrance under the green pavilion located off [facility], at time _1130_ on date _11/09/24_. Planned Procedure Time: _1330_.? Time changes happen often and if your time is changed the preop area will call you the afternoon before. - You and your visitor will be asked to self-screen and do not enter if you have any COVID symptoms. Please call surgeon if you need to reschedule. - A mask is optional within the hospital at this time. Patients may have clear liquids (water, carbonated beverages, clear teas, apple juice) until 3 hours prior to surgery with a maximum of 20 ounces. - No food from midnight until time of surgery and no smoking, or chewing tobacco (or any form of nicotine). No chewing gum, candy or mints. - Infants may have breast milk until 4 hours before surgery, infant formula 6 hours prior to surgery. - Children will be allowed to drink immediately following surgery.? If applicable, please bring a bottle or sippy cup to assist with drinking. Juice, water, soda, and popsicles are readily available.? For infants on formula, please bring formula the day of surgery.? Pacifiers are allowed. Take only the following medications with a SIP of water on the morning of surgery: METOPROLOL AND EYE GTTS DO NOT STOP ANY OF YOUR OTHER PRESCRIPTION MEDICATIONS PRIOR TO SURGERY EXCEPT THE FOLLOWING Hold all vitamins and supplements for 3 days per anesthesiologist. Medications to discontinue per physician Date to take last dose_11/06/24 Please no make-up, nail gabonese, hairspray, perfume, deodorant, or body powder the day of surgery.? No jewelry (including any body piercings) or valuables the day of surgery, leave them at home.? Please take a shower or bath the night before, or the morning of, surgery with an antibacterial soap.? Wear comfortable, loose fitting clothing.? Children are encouraged to wear pajamas. - Jewelry must be removed prior to entering the operating room.? Rings and piercings that are not removed may be cut off. - The hospital will not accept responsibility for valuables.? - Please leave all valuables, including medications, at home the day of surgery. If you are going home after surgery, a licensed buggy driver must drive you home.? - NO public transportation without another adult if you receive anesthesia. - We recommend that an adult stay with you for 24 hours following discharge. - We also recommend that you do not drive, make important decision, drink alcoholic beverages, or take any drugs that were not prescribed by your health care provider for at least 24 hours after your discharge time. For Pediatric surgeries, we recommend two adults accompany the child home. Follow any additional instructions given to you from your surgeon. Telephone instructions given to PATIENTand asked if any additional questions and then verbalized understanding. Patient advised to call surgeon office or pre surgery nurse liaison [phone] if any additional questions.
[2024-11-09] VITALS (9 sets, daily range): BP systolic 116–138; BP diastolic 55–89; PULSE 61–88; RESP 12–16; TEMP 36.8–37.2; O2SAT 96–100
--- NOTE | 2024-11-09 07:15 | WPDHPUPDATE1 ---
History and Physical Update Update Date/Time: 11/09/24 07:15 History and Physical has been reviewed, including an updated exam of the patient. There are NO changes in the patient's condition. Risks, benefits, and alternatives have been discussed and questions answered. Patient agrees to proceed with procedure.
--- NOTE | 2024-11-09 08:58 | WPDANESEPPF ---
Anes - Initial Pre Proc Eval Procedure: Operation Date: 11/09/24 13:30 Proposed Procedures p Left Knee Arthroscopic Partial Medial Meniscectomy - Melvin Shea MD Date/Time: 11/09/24 08:58 Surgeon: Melvin Shea MD Pre Op Diagnosis: left knee medial meniscus tear Patient Data Age: 54 Gender: F Height: 1.57 m Weight: 103 kg Allergies Allergy/AdvReac Type Severity Reaction Status Date / Time methimazole Allergy Severe Hives Verified 11/09/24 11:42 amoxicillin Allergy Unknown Hives Verified 11/09/24 11:42 ibuprofen Allergy Unknown Hives Verified 11/09/24 11:42 penicillin G Allergy Unknown Hives Verified 11/09/24 11:42 Sulfa (Sulfonamide Allergy Unknown Hives Verified 11/09/24 11:42 Antibiotics) sulfanilamide Allergy Unknown Hives Verified 11/09/24 11:42 Home Medications ?Medication ?Instructions ?Recorded ?Confirmed ?Type cyclosporine 0.05 % eye drops in a 1 drp EACH EYE Q12H 07/14/21 11/09/24 History dropperette (Restasis) calcium 500 mg (citrate)-vit D3 500 g PO TID 04/16/22 11/09/24 History 12.5 mcg (500 unit)/5 gram oral powder docusate sodium 100 mg capsule 100 mg PO BID 04/16/22 11/09/24 History (Colace) mecobalamin (vitamin B12) 5,000 5,000 mcg PO DAILY 04/16/22 11/09/24 History mcg disintegrating tablet multivitamin 1 tablet PO BID 04/16/22 11/09/24 History metoprolol succinate 25 mg 12.5 mg (1/2 x 25 mg) PO DAILY #45 11/06/24 11/09/24 Rx tablet,extended release 24 hr tabs Patient hx anesthesia problems: post op nausea/vomiting Family hx anesthesia problems: none Results Review: All pre-operative results and documents have been reviewed as part of the pre-operative evaluation. 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) Sleeve revised to [place]-en-Y History of sleeve gastrectomy History of cholecystectomy H/O foot surgery H/O dilation and curettage Hx of tonsillectomy Family History Family History Mother Heart disease Diabetes mellitus Hypertension Arthritis Father Hypertension Grandparent Breast cancer Heart disease Social History Social History Smoking status: Never smoker Second hand tobacco smoke exposure: No Alcohol intake: current Alcohol use details: RARE USE Substance use: never Substance use type: does not use Do You Feel Safe in your Home?: Yes Lack of Transportation: No Lack of Food: Never True Current Housing: I Have Housing Concerned About Future Housing: No Difficulty Paying Gas/Electric Bills: No Difficulty Paying for Meds: No Currently Unemployed: No Education: Master's Degree or Higher Difficulty w/ Childcare or Family Care: No Living arrangements: alone Occupation/Education: occupation Gender identity (if verbalized by the patient): Female Sexual Orientation (if Verbalized by the Patient): Straight or Heterosexual Spiritual care concerns: No Agree to blood products: Yes Anes - Eval Final PreProcedure Day of Procedure 11/09/24 08:58 Patient weight: morbidly obese Heart: regular rate and rhythm Lungs: clear to auscultation Airway: Mallampati scale class II Neurological: alert and oriented Last oral intake: >/= 8 hours ASA classification: III Emergent: no Anesthetic plan: proceed Anesthesia type and monitoring: general LMA and standard monitoring Results Review: All pre-operative results and documents have been reviewed as part of the pre-operative evaluation. Informed Consent: The patient's anesthetic plan and its attendant risks and benefits were discussed with the patient/family/POA. Questions were solicited and answers provided to the satisfaction of the patient/family/POA.
[2024-11-09] MEDS: LACTATED RINGERS 1,000 ML 30 ML IV CONT (12:07)
[2024-11-09] MEDS: ACETAMINOPHEN 500 MG TABLET 1000 MG PO (12:08)
[2024-11-09] MEDS: KETOROLAC 15 MG/ML VIAL (*BKC) IV PUSH (12:35)
[2024-11-09] MEDS: SCOPOLAMINE 1 MG PATCH 1 PATCH TRANSDERM (12:39)
[2024-11-09] MEDS: ceFAZolin 2 GM in SODIUM CHLORIDE 0.9% IV 50 ML 100 ML IVPB (12:40)
[2024-11-09] MEDS: BUPIVACAINE/EPINEPHRINE 0.5% 50 ML VIAL 10 ML INFILTRATE (13:00)
--- NOTE | 2024-11-09 14:03 | P.OP_ITS ---
Procedure Note - Detailed Date of Procedure 11/09/24 Pre-op Diagnosis Left knee medial meniscus tear Post-op Diagnosis Same Procedure Performed Arthroscopic partial medial meniscectomy, left knee. Surgeon Melvin Shea MD Anesthesia General Findings Extensive posterior horn oblique parrot-beak tear. Evidence of chondral damage along the medial aspect of the femoral condyle posteriorly. Tear debrided to a stable rim. Mild synovitis. 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 Medial femur chondromalacia grade 2, medial tibia grade 1. Lateral femur chondromalacia grade 0, lateral tibia grade 0. Patellar grade 1, trochlea grade 4. Description of Procedure The patient was identified and the surgical site confirmed and signed in the preoperative holding area. Antibiotics were started per protocol, and the patient was brought to the operative room and transferred to the OR table. A general anesthetic was administered. Supine position with the operative lower extremity position in the leg butt after placement of a well padded t ourniquet. The leg support was lowered and the contralateral limb was supported with a soft bolster. The knee was prepped and draped in the usual sterile fashion. A time-out was performed. The portal sites were marked and infiltrated with 0.5% Marcaine 20 mL. The limb was exsanguinated and the tourniquet inflated to 300 mL Hg. Standard inferolateral and inferomedial portals were established. Inflow was obtained with the saline pump. The camera was introduced. Diagnostic inspection of the joint was accomplished. The meniscus was debrided with the arthroscopic shaver and punches until stable. The radiofrequency probe was also used for further d?bridement. Gentle chondroplasty on the medial femoral condyle medial border as well as the trochlea with significant flaps and a central strip of grade 4 chondromalacia along the proximal aspect of the trochlea. The arthroscopic instruments were removed. The tourniquet released and wounds closed with subcutaneous 4-0 Monocryl absorbable suture. Steri strips and a sterile dressing were applied. A light elastic wrap was placed. The patient was extubated and brought to the recovery room in stable condition. Estimated Blood Loss 5 Tourniquet Time Total Tourniquet Time: 17 Drains No Complications No immediate complications Condition Stable Disposition PACU [facility] Billing Surgery - Charge Forward: Surgery Billing
[2024-11-09] MEDS: oxyCODONE HCL (*CRX) 5 MG TAB IR PO (14:34)
== END 2024-11-09 15:28 | disposition home or self-care (01) ==
PROVIDERS: PCP Nurse Practitioner Family; Visit Provider Orthopaedic Surgery
PROC: (CPT 29870; principal; 2024-11-09 13:30)
DX: S83.242A Other tear of medial meniscus, current injury, left knee, initial encounter (principal); M22.42 Chondromalacia patellae, left knee; M65.862 Other synovitis and tenosynovitis, left lower leg; X50.0XXA Overexertion from strenuous movement or load, initial encounter
CPT/HCPCS: 29881; J0690; A9270; J1100; J1885; J2003; J2250; J2405; J2704; J3010; J7120